=== PATIENT | female | born 2000 | race Caucasian/White ===

== ENCOUNTER 2021-08-08 15:24 | Inpatient (IN) ==
[2021-08-08 16:25] LABS: Urine Appearance Clear; Urine Bilirubin Negative (Negative); Urine Blood Negative (Negative); Urine Color Yellow; Urine Glucose Negative (Negative); Urine Ketones Negative (Negative); Urine Nitrite Negative (Negative); Urine Protein Negative (Negative); Urine Specific Gravity 1.012 (1.002-1.030); Urine Urobilinogen Negative (Negative)
[2021-08-08 17:01] LABS: Urine Benzodiazepine Screen None Detected (None Detect); Urine Cannabinoids Screen None Detected (None Detect); Urine Opiates Screen None Detected (None Detect)
[2021-08-08 17:16] LABS: ABS Lymphocytes 1.9 10^3/ul (1.0-4.8); ABS Monocytes 1.1 10^3/ul (0-0.8); ABS Neutrophils 5.3 10^3/ul (1.5-7.7); Eosinophil % 0.5 %; Hematocrit 42 % (35-47); Hemoglobin 14.4 g/dL (12.0-16.0); Lymphocyte % 22.3 %; Mean Corpuscular HGB Conc 34 g/dL (31-36); Mean Corpuscular Hemoglobin 30 pg (27-31); Mean Corpuscular Volume 88 fL (80-97); Mean Platelet Volume 8.5 fL (7.4-10.4); Platelet Count 281 10^3/uL (150-450); Red Blood Count 4.81 10^6 /uL (3.70-4.87); Red Cell Distribution Width 13 % (10-15); White Blood Count 8.3 10^3/uL (3.5-10.8)
[2021-08-08 17:35] LABS: ALT 20 U/L (7-52); AST 21 U/L (13-39); Albumin 4.2 g/dL (3.2-5.2); Albumin/Globulin Ratio 1.4 (1-3); Alkaline Phosphatase 50 U/L (35-149); Anion Gap 8 mmol/L (2-11); Blood Urea Nitrogen 11 mg/dL (6-24); CO2 Carbon Dioxide 21 mmol/L (22-32); Calcium 9.6 mg/dL (8.6-10.3); Chloride 107 mmol/L (101-111); EGFR African American 112.3 (>60); EGFR Non-African American 92.8 (>60); Glucose 97 mg/dL (70-100); HCG Pregnancy < 0.60 mIU/mL; Potassium 3.9 mmol/L (3.5-5.0); Sodium 136 mmol/L (135-145); Total Protein 7.2 g/dL (6.4-8.9)
[2021-08-08 18:27] LABS: Acetaminophen < 15 mcg/mL; Alcohol, S < 13 mg/dL (<13); Salicylate < 2.50 mg/dL (<30)
[2021-08-08 18:39] LABS: TSH Ultra Thyroid Stim Horm 1.37 mcIU/mL (0.34-5.60)
[2021-08-09] MEDS ORDERED: Al Hydrox/Mg Hydrox/Simet LIQ 30 ML UDC PO PRN (01:29)
[2021-08-09 01:32] VITALS: BP 129/76
[2021-08-09] MEDS ORDERED: Flu vaccine *QUAD* 2021-22* 0.5 ML SYRINGE IM ONE (09:00)
[2021-08-09] MEDS ORDERED: Venlafaxine XR 75 mg PO SCH (09:00)
[2021-08-09] MEDS ORDERED: Vitamin THERAPEUTIC TAB PO SCH (09:00)
== END 2021-08-09 15:15 | disposition home or self-care (01) | DRG 881 ==
LOC: ED 15:24 → BSU 22:30
PROVIDERS: ADMIT Psychiatry & Neurology Psychiatry; ATTEND Psychiatry & Neurology Psychiatry